=== PATIENT | male | born 1955 | race Caucasian/White ===

== ENCOUNTER 2018-12-02 09:01 | Emergency (ER) | payer OTHER ==
[~2018-12-02] VITALS: Ht 165.1 cm; Wt 86.2 kg
[2018-12-02 09:01] VITALS: BP 63/98
[2018-12-02] MEDS ORDERED: IBUPROFEN 600 MG TABLET PO ONE ×2 (09:29→09:30)
== END 2018-12-02 10:23 | disposition home or self-care (01) ==
LOC: ER 09:04
DX: S60.022A Contusion of left index finger without damage to nail, initial encounter (principal); L03.012 Cellulitis of left finger; F17.200 Nicotine dependence, unspecified, uncomplicated; W19.XXXA Unspecified fall, initial encounter; Y93.89 Activity, other specified; Y92.89 Other specified places as the place of occurrence of the external cause; Y99.8 Other external cause status
CPT/HCPCS: 73140-TC